=== PATIENT | female | born 1995 | race African-American/Black ===

== ENCOUNTER 2019-02-16 09:12 | Emergency (ER) | payer OTHER ==
[2019-02-16] MEDS ORDERED: IBUPROFEN 800 MG TABLET PO ONE (10:06)
[2019-02-16] MEDS ORDERED: CYCLOBENZAPRINE HCL 10 MG TABLET PO ONE (10:06)
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
[2019-02-16 11:32] VITALS: BP 128/69
== END 2019-02-16 11:12 | disposition home or self-care (01) ==
LOC: ER 09:12
DX: S16.1XXA Strain of muscle, fascia and tendon at neck level, initial encounter (principal); M54.2 Cervicalgia; V49.9XXA Car occupant (driver) (passenger) injured in unspecified traffic accident, initial encounter; Z91.018 Allergy to other foods
CPT/HCPCS: 99284; 72125; L0120